=== PATIENT | female | born 1950 | race Caucasian/White ===

== ENCOUNTER → 2016-10-08 | Outpatient (CLI) | payer BC ==
[2016-10-08 14:02] LABS: Appearance,Urine Clear (Clear); Bilirubin,Urine Negative (Negative); Glucose,Urine (UA) Negative (Negative); Ketones,Urine Negative (Negative); Leukocyte Esterase,Urine Negative (Negative); Nitrite,Urine Negative (Negative); PH, Urine 5.5 (5.0-8.0); Protein,Urine Negative (Negative); Specific Gravity,Urine 1.004 (1.001-1.035); UA Billing (MACRO vs. MICRO) CHEM; Urobilinogen,Urine <2.0 mg/dL (<2.0)
== END | disposition home or self-care (01) ==
LOC: LABPRL 12:38
PROVIDERS: ATTEND Physician Assistant
DX: R39.9 Unspecified symptoms and signs involving the genitourinary system (principal)
CPT/HCPCS: 81003

== ENCOUNTER → 2016-10-22 | Outpatient (CLI) | payer BC ==
--- NOTE | 2016-10-22 12:13 | ECHOS ---
DATE OF SERVICE: 10/22/2016 AGE: 65Y SEX: F HT: 66" WT: 146lbs. Protocol Trent: Others: X Stage: 2 Dur. of Exercise: 5:00 *Heart Rate Blood Pressure *Rest: 105 Rest: 114/65 * *Max. Achieved: 144 Maximum BP: 133/64 85% PMHR: 133 100% PMHR: 156 *METS: 6.4 INDICATIONS: Chest pain. MEDICATIONS: REFERRING PHYSICIAN: Dr. Pastor. STRESS DATA: Pretesting physical examination showed heart rate of 105, pressure is 114/65 mmHg. Baseline EKG showed sinus rhythm with frequent premature ventricular contractions. The patient exercised on the treadmill according to Trent protocol for a total of 5 minutes and achieved 6.4 METs. Max heart rate was 144, which is about 92% of maximum predicted heart rate. Maximum blood pressure was 133/64 mmHg. Clinically, the patient did not have any symptoms of chest pain or discomfort during the testing or on recovery. The EKG did not show any significant ST or T wave abnormalities but there was frequent ventricular ectopies noted during the exercise as well as on recovery. ECHOCARDIOGRAM IMAGES: On echocardiogram images from parasternal long axis view, parasternal short axis view, apical 4 chamber view, were obtained as the baseline images, at the peak of the heart rate, as well as on recovery. The baseline echocardiogram images showed basal inferior hypokinesia noted. During exercise there is no evidence of any wall motion abnormalities consistent with ischemia noted. Incidentally, there was what seems to be myxomatous mitral valve leaflets with evidence of mitral valve prolapse and at least moderate MR was seen. CONCLUSION: 1. Average exercise capacity. 2. No evidence of any ischemic ST or T wave abnormalities noted during exercise or on recovery. 3. The patient has frequent premature ventricular ectopies noted on the baseline EKG and it was more frequent during exercise and on recovery. 4. 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 5. There is no evidence of any wall motion abnormalities consistent with ischemia noted during the peak of exercise or on recovery. 6. A complete 2-D echocardiogram with Doppler is recommended for better clarification off the wall motion abnormalities as well as the mitral valve apparatus.
== END | disposition home or self-care (01) ==
LOC: RADNMMAIN 10:47
PROVIDERS: ATTEND Internal Medicine Geriatric Medicine
DX: I34.0 Nonrheumatic mitral (valve) insufficiency (principal); I49.3 Ventricular premature depolarization; I34.1 Nonrheumatic mitral (valve) prolapse
CPT/HCPCS: 93017; 93350